=== PATIENT | female | born 1985 | race American Indian/Alaskan Native ===

== ENCOUNTER 2020-07-30 09:16 | Emergency (ER) | payer SELFPAY ==
[2020-07-30] MEDS ORDERED: IPRATROPIUM/ALBUTEROL SULFATE 3 ML AMPUL.NEB IH ONE ×2 (09:37→11:43)
[2020-07-30] MEDS ORDERED: methylPREDNISolone Sod Succinate 125 MG/2 ML INJ IV ONE (09:37)
--- NOTE | 2020-07-30 09:39 | Event Note ---
ED Screening Note Date of service: 07/30/20 Time: 09:37 ED Screening Note: 35-year-old female with a past medical history of asthma and bronchitis presents to the ER today with complaints of shortness of breath and cough. Onset of symptoms 2 weeks ago. She reports associated chest pain from the coughing. Reports generalized body aches. She had a negative Covid test about 2 days ago. She is also out of her inhaler. This initial assessment/diagnostic orders/clinical plan/treatment(s) is/are s ubject to change based on patients health status, clinical progression and re- assessment by fellow clinical providers in the ED. Further treatment and workup at subsequent clinical providers discretion. Patient/guardian urged not to elope from the ED as their condition may be serious if not clinically assessed and managed. Initial orders include: Dyspnea work up
[2020-07-30 10:11] LABS: Hemoglobin 11.1 gm/dl (10.1-14.3); Mean Corpuscular HGB Conc 33 % (30-34); Mean Corpuscular Volume 84 fl (79-97); Platelet Count 303 K/mm3 (140-440); Red Blood Count 4.04 M/mm3 (3.65-5.03); Red Cell Distribution Width 14.6 % (13.2-15.2)
[2020-07-30 10:40] LABS: Alanine Aminotransferase 17 units/L (7-56); Albumin 3.9 g/dL (3.9-5); Blood Urea Nitrogen 10 mg/dL (7-17); Hemolysis Index 0
--- NOTE | 2020-07-30 10:49 | XRay Report ---
CHEST 1 VIEW 07/30/2020 9:43 AM INDICATION / CLINICAL INFORMATION: Dyspnea. COMPARISON: None available. FINDINGS: SUPPORT DEVICES: None. HEART / MEDIASTINUM: No significant abnormality. LUNGS / PLEURA: Clear lungs. No significant pleural effusion. No pneumothorax. ADDITIONAL FINDINGS: No significant additional findings. IMPRESSION: 1. No acute abnormality of the chest. Signer Name: James Watt MD Signed: 07/30/2020 10:45 AM Workstation Name: [id number]
[2020-07-30 11:05] LABS: BUN/Creatinine Ratio 17
[2020-07-30] MEDS ORDERED: methylPREDNISolone Sod Succinate 125 MG/2 ML INJ ONE (11:39)
[2020-07-30] MEDS ORDERED: KETOROLAC 30 MG/1 ML INJ IV ONE (11:48)
[2020-07-30] MEDS ORDERED: ONDANSETRON 4 MG/2 ML INJ IV ONE (11:48)
[2020-07-30] MEDS ORDERED: ACETAMINOPHEN 325 MG TAB PO ONE (11:48)
--- NOTE | 2020-07-30 11:49 | Emergency Department Report ---
ED General Adult HPI - General Chief complaint: Dyspnea/Respdistress Stated complaint: CHEST PAIN/COUGH/NHI PUI?: Yes Time Seen by Provider: 07/30/20 11:38 Source: patient, RN notes reviewed Mode of arrival: Ambulatory Limitations: No Limitations - History of Present Illness Initial comments: The patient was evaluated in the emergency department for symptoms described in the history of present illness. He/she was evaluated in the context of the global COVID-19 pandemic, which necessitated consideration that the patient migh t be at risk for infection with the virus that causes COVID-19. Institutional protocols and algorithms that pertain to the evaluation of patients at risk for COVID-19 are in a state of rapid change based on information released by regulatory bodies including the CDC and federal and state organizations. These policies and algorithms were followed during the patient's care in the emergency department. Please note that these policies, procedures and recommendations changed on a rapid basis. During the entire history and physical examination, I had on complete personal protective equipment. The patient is a 35-year-old female. She is not known to myself previously. She states that she is not , and has not delivered or given in the past 6 weeks. She states she does not take control tablets, oral contraceptives, she denies DVT and pulmonary embolism risk factors, and there is no personal/family history of ischemic heart disease, DVT or pulmonary embolism. Patient is a former tobacco smoker, reports that she quit smoking 3 months ago, but still is closely associated with individuals who smoke tobacco, and marijuana. The patient presents to the ER today with a complaint of 2 weeks of chest tightness, shortness of breath, cough and wheezing. Chest tightness does not radiate to the back, arms or neck. There is no vomiting or diaphoresis. No fever, no loss of taste or smell. Patient reports a recent negative Covid test. No leg pain or leg swelling. No abdominal pain, vomiting, urinary symptoms. Symptoms are improved in the emergency room with conservative therapy. The pain does not radiate anywhere. Pain increases with palpation, coughing. -: Gradual, week(s) Location: chest Radiation: non-radiation Quality: aching Consistency: other Improves with: medication, rest Worsens with: movement - Related Data Previous Rx's Medication Instructions Recorded Last Taken Type Acetaminophen [Non-Aspirin Extra 500 mg PO Q6HR PRN #30 tablet 07/30/20 Unknown Rx Strength] Albuterol Sulfate [Proair 90 mcg IH Q4HR PRN #2 aer.pow.ba 07/30/20 Unknown Rx Respiclick] Ibuprofen [Motrin] 600 mg PO Q8H PRN #30 tablet 07/30/20 Unknown Rx predniSONE [Deltasone] 40 mg PO QDAY #8 tab 07/30/20 Unknown Rx Allergies Allergy/AdvReac Type Severity Reaction Status Date / Time No Known Allergies Allergy Unverified 07/30/20 09:30 ED Review of Systems ROS: Stated complaint: CHEST PAIN/COUGH/NHI Other details as noted in HPI Constitutional: other (Denies loss of taste and smell). denies: fever, malaise, weakness ENT: congestion Respiratory: cough, shortness of breath, SOB with exertion, wheezing Cardiovascular: other (Chest wall pain) Gastrointestinal: denies: abdominal pain, hematemesis, melena, hematochezia Genitourinary: denies: dysuria Musculoskeletal: myalgia Neurological: weakness Hematological/Lymphatic: denies: easy bleeding ED Past Medical Hx - Past Medical History Hx Asthma: Yes - Surgical History Additional Surgical History: C SECTION - Medications Home Medications: Home Medications Medication Instructions Recorded Confirmed Last Taken Type Acetaminophen [Non-Aspirin Extra 500 mg PO Q6HR PRN #30 tablet 07/30/20 Unknown Rx Strength] Albuterol Sulfate [Proair 90 mcg IH Q4HR PRN #2 aer.pow.ba 07/30/20 Unknown Rx Respiclick] Ibuprofen [Motrin] 600 mg PO Q8H PRN #30 tablet 07/30/20 Unknown Rx predniSONE [Deltasone] 40 mg PO QDAY #8 tab 07/30/20 Unknown Rx ED Physical Exam - General Limitations: No Limitations General appearance: alert, anxious, obese - Head Head exam: Present: atraumatic, normocephalic - Eye Eye exam: Present: normal appearance, EOMI. Absent: nystagmus - ENT ENT exam: Present: normal exam, normal orophraynx, mucous membranes moist, normal external ear exam - Neck Neck exam: Present: normal inspection, full ROM. Absent: tenderness, meningismus - Respiratory Respiratory exam: Present: wheezes (Faint wheezes appreciated), rhonchi, chest wall tenderness. Absent: respiratory distress, rales, stridor - Cardiovascular Cardiovascular Exam: Present: regular rate, normal rhythm, normal heart sounds. Absent: bradycardia, tachycardia, irregular rhythm, systolic murmur, diastolic murmur, rubs, gallop - GI/Abdominal GI/Abdominal exam: Present: soft. Absent: distended, tenderness, guarding, rebound, rigid, pulsatile mass - Extremities Exam Extremities exam: Present: normal inspection, full ROM, other (2+ pulses noted in the bilateral upper and lower extremities. There is no palpable cord. negative Homans sign. Muscular compartments are soft. The pelvis is stable.). Absent: pedal edema, calf tenderness - Back Exam Back exam: Present: normal inspection, full ROM. Absent: tenderness, CVA tenderness (R), CVA tenderness (L), paraspinal tenderness, vertebral tenderness - Neurological Exam Neurological exam: Present: alert, normal gait, other (No facial droop. Tongue midline. Extraocular movements intact bilaterally. Facial sensation intact to light touch in V1, V2, V3 distribution bilaterally. 5 and a 5 strength in 4 extremities. Sensation intact to light touch in 4 extremities.). Absent: motor sensory deficit - Psychiatric Psychiatric exam: Present: normal affect, normal mood - Skin Skin exam: Present: warm, dry, intact, normal color. Absent: rash ED Course Vital Signs 07/30/20 07/30/20 07/30/20 09:34 11:48 12:24 Temperature 98.0 F 97.7 F Pulse Rate 121 H 79 Pulse Rate [ 120 H Anterior Bilateral Throughout] Respiratory 24 15 Rate Respiratory 22 Rate [Anterior Bilateral Throughout] Blood Pressure 191/97 Blood Pressure 133/65 [Left] O2 Sat by Pulse 99 99 Oximetry ED Medical Decision Making - Lab Data Result diagrams: 07/30/20 09:43 07/30/20 09:43 Vital Signs 07/30/20 07/30/20 07/30/20 09:34 11:48 12:24 Temperature 98.0 F 97.7 F Pulse Rate 121 H 79 Pulse Rate [ 120 H Anterior Bilateral Throughout] Respiratory 24 15 Rate Respiratory 22 Rate [Anterior Bilateral Throughout] Blood Pressure 191/97 Blood Pressure 133/65 [Left] O2 Sat by Pulse 99 99 Oximetry Lab Results 07/30/20 07/30/20 Range/Units 09:43 09:43 WBC 12.4 H (4.5-11.0) K/mm3 RBC 4.04 (3.65-5.03) M/mm3 Hgb 11.1 (10.1-14.3) gm/dl Hct 34.0 (30.3-42.9) % MCV 84 (79-97) fl MCH 28 (28-32) pg MCHC 33 (30-34) % RDW 14.6 (13.2-15.2) % Plt Count 303 (140-440) K/mm3 Lymph # (Auto) Pairer Substandard Sodium 139 (137-145) mmol/L Potassium 4.0 (3.6-5.0) mmol/L Chloride 103.5 (98-107) mmol/L Carbon Dioxide 29 (22-30) mmol/L Anion Gap 11 mmol/L BUN 10 (7-17) mg/dL Creatinine 0.6 (0.6-1.2) mg/dL Estimated GFR > 60 ml/min BUN/Creatinine Ratio 17 % Glucose 109 H (65-100) mg/dL Calcium 9.0 (8.4-10.2) mg/dL Total Bilirubin 0.20 (0.1-1.2) mg/dL AST 15 (5-40) units/L ALT 17 (7-56) units/L Alkaline Phosphatase 79 (35-129) units/L Troponin T < 0.010 (0.00-0.029) ng/mL Total Protein 6.4 (6.3-8.2) g/dL Albumin 3.9 (3.9-5) g/dL Albumin/Globulin Ratio 1.6 % Lipase 28 (13-60) units/L - EKG Data -: EKG Interpreted by [facility] EKG shows normal: sinus rhythm Rate: normal - EKG Data When compared to previous EKG there are: previous EKG unavailable 07/30/20 14:18 EKG time of interpretation: 12: 13 P.m. No prior EKGs available for comparison. Sinus rhythm, 98 bpm. Normal axis, the QTC is 472 ms. There is poor R wave progression, nonspecific T wave abnormality,, motion artifact. Not a STEMI. - Radiology Data Radiology results: pending, report reviewed, image reviewed CHEST 1 VIEW 07/30/2020 9:43 AM INDICATION / CLINICAL INFORMATION: Dyspnea. COMPARISON: None available. FINDINGS: SUPPORT DEVICES: None. HEART / MEDIASTINUM: No significant abnormality. LUNGS / PLEURA: Clear lungs. No sig nificant pleural effusion. No pneumothorax. ADDITIONAL FINDINGS: No significant additional findings. IMPRESSION: 1. No acute abnormality of the chest. Signer Name: James Watt MD Signed: 07/30/2020 9:45 AM Workstation Name: [id number] - Medical Decision Making Differential diagnosis, including but not limited to: Costochondritis, bronchitis, pneumonia, COVID-19, viral syndrome, pneumonitis Assessment and plan: 35-year-old female, who is now afebrile with reassuring vital signs, with resolved tachycardia, resolved hypertension/elevated blood pressure, who denies DVT and pulmonary embolism risk factors, who is low risk by Wells criteria, low risk for major adverse cardiac event as per heart score, symptoms present for weeks, troponin negative x1, EKG fairly unremarkable, with probable costochondritis, superimposed on bronchitis/viral syndrome/question Covid Laboratory studies unremarkable. Tachycardia resolved. Elevated blood pressure resolved. X-ray of the chest unremarkable. Patient ambulated on room air without desaturation. Counseled patient on natural history of COVID-19 and bronchitis. Patient reports a recent negative COVID-19 test as an outpatient. Patient counseled to avoid exposure to tobacco, smoke products, marijuana products. Patient observed in this ER for hours without clinical decompensation, suitable to follow-up as an outpatient. Patient has equal pulses in the upper and lower extremities, no pulsatile abdominal mass, and an unremarkable x-ray of the chest, therefore, aortic disease is very unlikely. Patient at low risk for major adverse cardiac event as per heart score. Critical care attestation.: If time is entered above; I have spent that time in minutes in the direct care of this critically ill patient, excluding procedure time. ED Disposition Clinical Impression: Suspected 2019 novel coronavirus infection, Bronchitis, Costochondritis Disposition: DC-01 TO HOME OR SELFCARE Is pt being admited?: No Does the pt Need Aspirin: No Condition: Good Instructions: Chronic Bronchitis (ED), Costochondritis, [id number], Upper Respiratory Infection, Adult, [id number], COVID-19 Additional Instructions: As we discussed, patient likely has bronchitis, and superimposed costochondrit is/inflammation/irritation of the muscles and connective tissue of the chest wall. The patient may also have superimposed COVID-19. Recommend avoidance/exposure to all smoke, tobacco, marijuana products. The symptoms of COVID will typically persist 10 to 14 days. There is no cure at this time for COVID. Please make certain to self isolate and self quarantine, follow-up with an outpatient primary care doctor within the next 3 to 5 days, wash hands with soap and water frequently, thoroughly and often, patient may take the prescribed medications as needed and directed. Advance diet and drink plenty of fluids as tolerated. Avoid interactions with the very elderly, very young, and those with chronic medical conditions. Return to the emergency room right away with new pain, worsening pain, migration of pain, projectile vomiting, change in mental status, confusion, inability to tolerate liquid feeds, new, worsened or different symptoms not present on the initial emergency room evaluation. Referrals: CHILO DYSON MD [Staff Physician] - 3-5 Days [facility] [Provider Group] - 3-5 Days Forms: Work/School Release Form(ED)
[2020-07-30 12:25] VITALS: BP 133/65
[2020-07-30 14:49] LABS: Platelet Estimate Consistent w Auto; RBC Morphology Normal; Total Cells Counted 100
== END 2020-07-30 15:09 | disposition home or self-care (01) ==
LOC: ED 09:16
DX: J40 Bronchitis, not specified as acute or chronic (principal); M94.0 Chondrocostal junction syndrome [Tietze]; Z79.899 Other long term (current) drug therapy; Z20.822 Contact with and (suspected) exposure to COVID-19
CPT/HCPCS: 36415; 71045; 80053; 83690; 84484; 85007; 85025; 93005; 94640; 96374; 96375; 99284; J1885; J2405; J2930; 94644

== ENCOUNTER 2020-08-05 08:37 | Emergency (ER) | payer SELFPAY ==
--- NOTE | 2020-08-05 08:45 | Event Note ---
ED Screening Note ED Screening Note: co severe cough wbc 12 last week here 1 w ago- see note 2 neg covid PCR- one on Monday chills This initial assessment/diagnostic orders/clinical plan/treatment(s) is/are subject to change based on patients health status, clinical progression and re- assessment by fellow clinical providers in the ED. Further treatment and workup at subsequent clinical providers discretion. Patient/guardian urged not to elope from the ED as their condition may be serious if not clinically assessed and managed. Initial orders include: labs/xray
[2020-08-05] MEDS ORDERED: ALBUTEROL 2.5 MG/3 ML NEBU IH ONE (09:00)
[2020-08-05 09:38] LABS: Hematocrit 34.6 % (30.3-42.9); Hemoglobin 11.2 gm/dl (10.1-14.3); Mean Corpuscular HGB Conc 32 % (30-34); Mean Corpuscular Volume 83 fl (79-97); Platelet Count 322 K/mm3 (140-440); Red Blood Count 4.14 M/mm3 (3.65-5.03); Red Cell Distribution Width 14.7 % (13.2-15.2)
[2020-08-05] MEDS ORDERED: SODIUM CHLORIDE 0.9% 1000 ML 1,000 ML IV ONE (09:56)
--- NOTE | 2020-08-05 10:17 | Emergency Department Report ---
ED General Adult HPI - General Chief complaint: Upper Respiratory Infection Stated complaint: SOB Time Seen by Provider: 08/05/20 10:07 Source: patient Mode of arrival: Ambulatory Limitations: No Limitations - History of Present Illness Initial comments: This is a 35-year-old female who complains of left-sided chest pain intermittently since July 11. She states that she was seen and evaluated here on July 30 for recurrent symptoms. She was given an albuterol treatment which improved her dyspnea to a limited degree. She states that she has been short of breath with a cough productive of green sputum which is sometimes reddish. She describes her pain as worsening with respiration. She does not report any recent travel, leg pain or swelling. She states that she has no known past medical history. She does not have a primary care provider. Patient states she is already had negative Covid testing x2 during this time, the last one recently. She states the pain is actually in the lateral aspect of her left chest. It appears that she was placed on prednisone and given a bronchodilator on 30 July but no antibiotic. Patient denies a personal history of VTE. She denies a family history of VTE. -: Gradual, week(s) Location: chest Radiation: non-radiation Severity scale (0 -10): 7 Quality: sharp Consistency: intermittent Improves with: none Worsens with: other (Respiration) Associated Symptoms: denies other symptoms, shortness of breath Treatments Prior to Arrival: none - Related Data Previous Rx's Medication Instructions Recorded Last Taken Type Acetaminophen [Non-Aspirin Extra 500 mg PO Q6HR PRN #30 tablet 07/30/20 Unknown Rx Strength] Albuterol Sulfate [Proair 90 mcg IH Q4HR PRN #2 aer.pow.ba 07/30/20 Unknown Rx Respiclick] Ibuprofen [Motrin] 600 mg PO Q8H PRN #30 tablet 07/30/20 Unknown Rx predniSONE [Deltasone] 40 mg PO QDAY #8 tab 07/30/20 Unknown Rx levoFLOXacin [Levaquin TAB] 500 mg PO QDAY #7 tablet 08/05/20 Unknown Rx traMADoL [Ultram 50 MG tab] 50 mg PO Q6HR PRN #10 tablet 08/05/20 Unknown Rx Allergies Allergy/AdvReac Type Severity Reaction Status Date / Time No Known Allergies Allergy Verified 08/05/20 08:58 ED Review of Systems ROS: Stated complaint: SOB Other details as noted in HPI Constitutional: denies: chills, fever Eyes: denies: eye pain, eye discharge, vision change ENT: denies: ear pain, throat pain Respiratory: see HPI, cough, shortness of breath Cardiovascular: chest pain. denies: palpitations Endocrine: no symptoms reported Gastrointestinal: denies: abdominal pain, nausea, diarrhea Genitourinary: denies: urgency, dysuria, discharge Musculoskeletal: denies: back pain, joint swelling, arthralgia Skin: denies: rash, lesions Neurological: denies: headache, weakness, paresthesias Psychiatric: denies: anxiety, depression Hematological/Lymphatic: denies: easy bleeding, easy bruising ED Past Medical Hx - Past Medical History Previous Medical History?: Yes Hx Asthma: Yes - Surgical History Additional Surgical History: C SECTION - Social History Smoking Status: Never Smoker Substance Use Type: None - Medications Home Medications: Home Medications Medication Instructions Recorded Confirmed Last Taken Type Acetaminophen [Non-Aspirin Extra 500 mg PO Q6HR PRN #30 tablet 07/30/20 Unknown Rx Strength] Albuterol Sulfate [Proair 90 mcg IH Q4HR PRN #2 aer.pow.ba 07/30/20 Unknown Rx Respiclick] Ibuprofen [Motrin] 600 mg PO Q8H PRN #30 tablet 07/30/20 Unknown Rx predniSONE [Deltasone] 40 mg PO QDAY #8 tab 07/30/20 Unknown Rx levoFLOXacin [Levaquin TAB] 500 mg PO QDAY #7 tablet 08/05/20 Unknown Rx traMADoL [Ultram 50 MG tab] 50 mg PO Q6HR PRN #10 tablet 08/05/20 Unknown Rx ED Physical Exam - General Limitations: No Limitations General appearance: alert, anxious, other (Pulse oximetry is 100%, the patient is mildly tachycardic and anxious) - Head Head exam: Present: atraumatic, normocephalic - Eye Eye exam: Present: normal appearance. Absent: scleral icterus - ENT ENT exam: Present: mucous membranes moist - Neck Neck exam: Present: normal inspection - Respiratory Respiratory exam: Present: normal lung sounds bilaterally. Absent: respiratory distress - Cardiovascular Cardiovascular Exam: Present: normal rhythm, tachycardia. Absent: systolic murmur, diastolic murmur, rubs, gallop - GI/Abdominal GI/Abdominal exam: Present: soft, normal bowel sounds. Absent: distended, tenderness, guarding, rebound - Extremities Exam Extremities exam: Present: normal inspection - Back Exam Back exam: Present: normal inspection, CVA tenderness (L). Absent: CVA tenderness (R), paraspinal tenderness, vertebral tenderness - Neurological Exam Neurological exam: Present: alert, oriented X3, CN II-XII intact. Absent: motor sensory deficit - Psychiatric Psychiatric exam: Present: normal mood, anxious - Skin Skin exam: Present: warm, dry, intact, normal color. Absent: rash ED Course Vital Signs 08/05/20 08/05/20 08/05/20 09:05 09:30 09:34 Temperature 98.8 F Pulse Rate 100 H 94 H Pulse Rate [ Anterior Bilateral Throughout] Respiratory 28 H 32 H Rate Respiratory Rate [Anterior Bilateral Throughout] Blood Pressure 185/100 184/96 [Right] O2 Sat by Pulse 96 99 99 Oximetry 08/05/20 08/05/20 08/05/20 09:55 10:30 11:39 Temperature Pulse Rate 115 H 111 H Pulse Rate [ 90 Anterior Bilateral Throughout] Respiratory 12 Rate Respiratory 24 Rate [Anterior Bilateral Throughout] Blood Pressure 147/73 136/66 [Right] O2 Sat by Pulse 100 99 Oximetry 08/05/20 12:48 Temperature Pulse Rate 102 H Pulse Rate [ Anterior Bilateral Throughout] Respiratory Rate Respiratory Rate [Anterior Bilateral Throughout] Blood Pressure 130/77 [Right] O2 Sat by Pulse 98 Oximetry - Reevaluation(s) Reevaluation #1: Even though the D-dimer was negative, with the patient's recurrent symptoms I thought it judicious to obtain a CT angiogram. It was obtained and completely negative. Patient does have an elevated white blood cell count. I would presume that this is an acute bronchitis and place her on an oral antibiotic. Assuming her EKG shows no evidence of anything acute, she is appropriate for outpatient follow- up. 08/05/20 13:02 08/05/20 13:06 ED Medical Decision Making - Lab Data Result diagrams: 08/05/20 09:26 08/05/20 09:26 Laboratory Results - last 24 hr 08/05/20 08/05/20 08/05/20 09:26 09:26 09:26 WBC 16.5 H RBC 4.14 Hgb 11.2 Hct 34.6 MCV 83 MCH 27 L MCHC 32 RDW 14.7 Plt Count 322 Lymph # (Auto) Catering Associate D-Dimer Lactic Acid 1.10 HCG, Qual Negative 08/05/20 09:26 WBC RBC Hgb Hct MCV MCH MCHC RDW Plt Count Lymph # (Auto) D-Dimer 213.99 Lactic Acid HCG, Qual Laboratory Results - last 24 hr 08/05/20 08/05/20 08/05/20 09:26 09:26 09:26 WBC 16.5 H RBC 4.14 Hgb 11.2 Hct 34.6 MCV 83 MCH 27 L MCHC 32 RDW 14.7 Plt Count 322 Lymph # (Auto) Catering Associate D-Dimer Sodium 139 Potassium 4.2 Chloride 102.2 Carbon Dioxide 28 Anion Gap 13 BUN 15 Creatinine 0.7 Estimated GFR > 60 BUN/Creatinine Ratio 21 Glucose 92 Lactic Acid Calcium 8.9 C-Reactive Protein Procalcitonin HCG, Qual Negative 08/05/20 08/05/20 08/05/20 09:26 09:26 09:26 WBC RBC Hgb Hct MCV MCH MCHC RDW Plt Count Lymph # (Auto) D-Dimer 213.99 Sodium Potassium Chloride Carbon Dioxide Anion Gap BUN Creatinine Estimated GFR BUN/Creatinine Ratio Glucose Lactic Acid 1.10 Calcium C-Reactive Protein 1.00 Procalcitonin HCG, Qual 08/05/20 09:26 WBC RBC Hgb Hct MCV MCH MCHC RDW Plt Count Lymph # (Auto) D-Dimer Sodium Potassium Chloride Carbon Dioxide Anion Gap BUN Creatinine Estimated GFR BUN/Creatinine Ratio Glucose Lactic Acid Calcium C-Reactive Protein Procalcitonin < 0.05 HCG, Qual Laboratory Results - last 24 hr 08/05/20 08/05/20 08/05/20 09:26 09:26 09:26 WBC 16.5 H RBC 4.14 Hgb 11.2 Hct 34.6 MCV 83 MCH 27 L MCHC 32 RDW 14.7 Plt Count 322 Lymph # (Auto) Catering Associate D-Dimer Sodium 139 Potassium 4.2 Chloride 102.2 Carbon Dioxide 28 Anion Gap 13 BUN 15 Creatinine 0.7 Estimated GFR > 60 BUN/Creatinine Ratio 21 Glucose 92 Lactic Acid Calcium 8.9 C-Reactive Protein Procalcitonin HCG, Qual Negative Urine Color Urine Turbidity Urine pH Ur Specific [place] Urine Protein Urine Glucose (UA) Urine Ketones Urine Blood Urine Nitrite Urine Bilirubin Urine Urobilinogen Ur Leukocyte Esterase Urine WBC (Auto) Urine RBC (Auto) U Epithel Cells (Auto) Urine Opiates Screen Urine Methadone Screen Ur Barbiturates Screen Ur Phencyclidine Scrn Ur Amphetamines Screen U Benzodiazepines Scrn Urine Cocaine Screen U Marijuana (THC) Screen Drugs of Abuse Note 08/05/20 08/05/20 08/05/20 09:26 09:26 09:26 WBC RBC Hgb Hct MCV MCH MCHC RDW Plt Count Lymph # (Auto) D-Dimer 213.99 Sodium Potassium Chloride Carbon Dioxide Anion Gap BUN Creatinine Estimated GFR BUN/Creatinine Ratio Glucose Lactic Acid 1.10 Calcium C-Reactive Protein 1.00 Procalcitonin HCG, Qual Urine Color Urine Turbidity Urine pH Ur Specific [place] Urine Protein Urine Glucose (UA) Urine Ketones Urine Blood Urine Nitrite Urine Bilirubin Urine Urobilinogen Ur Leukocyte Esterase Urine WBC (Auto) Urine RBC (Auto) U Epithel Cells (Auto) Urine Opiates Screen Urine Methadone Screen Ur Barbiturates Screen Ur Phencyclidine Scrn Ur Amphetamines Screen U Benzodiazepines Scrn Urine Cocaine Screen U Marijuana (THC) Screen Drugs of Abuse Note 08/05/20 08/05/20 08/05/20 09:26 Unknown Unknown WBC RBC Hgb Hct MCV MCH MCHC RDW Plt Count Lymph # (Auto) D-Dimer Sodium Potassium Chloride Carbon Dioxide Anion Gap BUN Creatinine Estimated GFR BUN/Creatinine Ratio Glucose Lactic Acid Calcium C-Reactive Protein Procalcitonin < 0.05 HCG, Qual Urine Color Straw Urine Turbidity Clear Urine pH 7.0 Ur Specific [place] 1.015 Urine Protein <15 mg/dl Urine Glucose (UA) Neg Urine Ketones Neg Urine Blood Neg Urine Nitrite Neg Urine Bilirubin Neg Urine Urobilinogen < 2.0 Ur Leukocyte Esterase Neg Urine WBC (Auto) 1.0 Urine RBC (Auto) 1.0 U Epithel Cells (Auto) < 1.0 Urine Opiates Screen Negative Urine Methadone Screen Negative Ur Barbiturates Screen Negative Ur Phencyclidine Scrn Negative Ur Amphetamines Screen Negative U Benzodiazepines Scrn Negative Urine Cocaine Screen Negative U Marijuana (THC) Screen Negative Drugs of Abuse Note Disclamer - EKG Data -: EKG Interpreted by [place] EKG shows normal: sinus rhythm, axis, intervals, QRS complexes, ST-T waves Rate: normal - EKG Data Interpretation: other (Essentially normal EKG) - Radiology Data Radiology results: report reviewed (Normal study) Critical care attestation.: If time is entered above; I have spent that time in minutes in the direct care of this critically ill patient, excluding procedure time. ED Disposition Clinical Impression: Atypical chest pain Acute bronchitis Qualifiers: Bronchitis organism: unspecified organism Qualified Code(s): J20.9 - Acute bronchitis, unspecified Disposition: - TO HOME OR SELFCARE Is pt being admited?: No Does the pt Need Aspirin: No Condition: Stable Instructions: Nonspecific Chest Pain, Adult, Acute Bronchitis (ED), Acute Bronchitis, Adult, [id number] Additional Instructions: Rx as directed. Follow-up with the primary care doctor or clinic. Return any acute change or problem. Prescriptions: levoFLOXacin [Levaquin TAB] 500 mg PO QDAY #7 tablet traMADoL [Ultram 50 MG tab] 50 mg PO Q6HR PRN #10 tablet PRN Reason: Pain Referrals: PRIMARY CARE, [Primary Care Provider] - 3-5 Days [facility] [Provider Group] - 3-5 Days Time of Disposition: 13:39
[2020-08-05] MEDS ORDERED: methylPREDNISolone Sod Succinate 125 MG/2 ML INJ IV ONE (10:29)
--- NOTE | 2020-08-05 10:31 | XRay Report ---
CHEST PA AND LATERAL VIEWS INDICATION: cough. COMPARISON: 07/30/2020 FINDINGS: Support devices: None. Heart: Within normal limits. Lungs/Pleura: No acute pulmonary or pleural findings. IMPRESSION: 1. No acute findings. Signer Name: Stew Cooper MD Signed: 08/05/2020 10:26 AM Workstation Name: [id number]
[2020-08-05 10:37] LABS: Blood Urea Nitrogen 15 mg/dL (7-17); Calcium 8.9 mg/dL (8.4-10.2); Hemolysis Index 4
[2020-08-05 10:38] LABS: BUN/Creatinine Ratio 21
[2020-08-05 11:28] LABS: Bilirubin,Urine NEG (Negative); Blood,Urine NEG (Negative); Color,Urine Straw (Yellow); Protein,Urine <15 mg/dL mg/dL (Negative); Urobilinogen,Urine < 2.0 mg/dL (<2.0)
[2020-08-05 11:30] LABS: Amphetamine Screen,Urine Negative; Benzodiazepines Screen,Urine Negative; Cannabinoid Screen,Urine Negative; Cocaine Screen,Urine Negative; Methadone Screen,Urine Negative; Opiate Screen,Urine Negative
--- NOTE | 2020-08-05 11:59 | Cat Scan Report ---
. CTA CHEST WITH CONTRAST INDICATION : Left-sided chest pain, shortness of breath. TECHNIQUE: Axial imaging performed through the chest, with contrast bolus timing set to maximize opa cification of the pulmonary arteries. Sagittal and coronal reformatted images. 3-plane MIP reformatte d images were obtained. All CT scans at this location are performed using CT dose reduction for ALAR A by means of automated exposure control. 100 mL of intravenous contrast administered. COMPARISON: None FINDINGS: Bolus: Contrast bolus timing is adequate. PTE: No filling defect is present to suggest PTE. Mediastinum: Heart and great vessels appear normal. No pathologic mediastinal adenopathy. Lungs: Lungs are clear. Bones: Degenerative changes in the spine with nothing acute. Upper abdomen: Limited imaging of the upper abdomen shows nothing acute. IMPRESSION: Negative for PTE. Clear lungs. Signer Name: Volodymyr Farrell Jr, MD Signed: 08/05/2020 11:54 AM Workstation Name: [id number]
[2020-08-05 14:10] LABS: RBC Morphology Normal; Total Cells Counted 100
[2020-08-05 14:11] LABS: Platelet Estimate Consistent w Auto
[2020-08-05 14:12] VITALS: BP 139/80
== END 2020-08-05 14:12 | disposition home or self-care (01) ==
LOC: ED 08:37
DX: J20.9 Acute bronchitis, unspecified (principal); R07.89 Other chest pain; Z79.899 Other long term (current) drug therapy
CPT/HCPCS: 36415; 71046; 71275; 80048; 80307; 81001; 82140; 84145; 84703; 85007; 85025; 85379; 86140; 93005; 94640; 96361; 96374; 99284; J2930; J7030; Q9967; 94644

== ENCOUNTER 2021-01-07 11:13 | Emergency (ER) | payer SELFPAY ==
[2021-01-07 11:20] VITALS: BP 127/71
[2021-01-07 12:55] LABS: Bilirubin,Urine NEG (Negative); Blood,Urine LG (Negative); Color,Urine Yellow (Yellow); Mucus,Urine FEW /HPF; Protein,Urine <15 mg/dL mg/dL (Negative); Urobilinogen,Urine < 2.0 mg/dL (<2.0)
[2021-01-07 12:56] LABS: HCG Qualitative,Urine Negative (Negative)
--- NOTE | 2021-01-07 13:32 | Emergency Department Report ---
ED General Adult HPI - General Chief complaint: Abdominal Pain Stated complaint: LOWER ABD/BACK PAIN Time Seen by Provider: 01/07/21 13:25 Source: patient Mode of arrival: Ambulatory Limitations: No Limitations - History of Present Illness Initial comments: Patient is a 35-year-old female presents emergency room with complaints of right lower back pain that began 2 weeks ago. She states that she also has some suprapubic abdominal discomfort. States that she has been having urinary frequency and urgency. She states that she has been having some intermittent nausea and vomiting and reports that she is had approximately 5 episodes of vomiting during this time. She is able to tolerate liquids. She denies any fever, chills, diarrhea, dysuria, abnormal vaginal discharge. She denies any concerns for STDs. No past medical history. No allergies to medications. Last menstrual cycle 01/04/21. - Related Data Previous Rx's Medication Instructions Recorded Last Taken Type Acetaminophen [Non-Aspirin Extra 500 mg PO Q6HR PRN #30 tablet 07/30/20 Unknown Rx Strength] Albuterol Sulfate [Proair 90 mcg IH Q4HR PRN #2 aer.pow.ba 07/30/20 Unknown Rx Respiclick] Ibuprofen [Motrin] 600 mg PO Q8H PRN #30 tablet 07/30/20 Unknown Rx predniSONE [Deltasone] 40 mg PO QDAY #8 tab 07/30/20 Unknown Rx levoFLOXacin [Levaquin TAB] 500 mg PO QDAY #7 tablet 08/05/20 Unknown Rx traMADoL [Ultram 50 MG tab] 50 mg PO Q6HR PRN #10 tablet 08/05/20 Unknown Rx Acetaminophen/Codeine [Tylenol 1 tab PO Q6H PRN #10 tab 01/07/21 Unknown Rx /Codeine # 3 tab] Ondansetron [Zofran Odt] 4 mg PO Q8HR PRN #10 tab.rapdis 01/07/21 Unknown Rx cephALEXin [Keflex] 500 mg PO BID 10 Days #20 capsule 01/07/21 Unknown Rx Allergies Allergy/AdvReac Type Severity Reaction Status Date / Time No Known Allergies Allergy Verified 01/07/21 11:15 ED Review of Systems ROS: Stated complaint: LOWER ABD/BACK PAIN Other details as noted in HPI Comment: All other systems reviewed and negative ED Past Medical Hx - Past Medical History Hx Asthma: Yes Additional medical history: BRONCHITIS - Surgical History Additional Surgical History: C SECTION - Social History Smoking Status: Never Smoker Substance Use Type: Alcohol - Medications Home Medications: Home Medications Medication Instructions Recorded Confirmed Last Taken Type Acetaminophen [Non-Aspirin Extra 500 mg PO Q6HR PRN #30 tablet 07/30/20 Unknown Rx Strength] Albuterol Sulfate [Proair 90 mcg IH Q4HR PRN #2 aer.pow.ba 07/30/20 Unknown Rx Respiclick] Ibuprofen [Motrin] 600 mg PO Q8H PRN #30 tablet 07/30/20 Unknown Rx predniSONE [Deltasone] 40 mg PO QDAY #8 tab 07/30/20 Unknown Rx levoFLOXacin [Levaquin TAB] 500 mg PO QDAY #7 tablet 08/05/20 Unknown Rx traMADoL [Ultram 50 MG tab] 50 mg PO Q6HR PRN #10 tablet 08/05/20 Unknown Rx Acetaminophen/Codeine [Tylenol 1 tab PO Q6H PRN #10 tab 01/07/21 Unknown Rx /Codeine # 3 tab] Ondansetron [Zofran Odt] 4 mg PO Q8HR PRN #10 tab.rapdis 01/07/21 Unknown Rx cephALEXin [Keflex] 500 mg PO BID 10 Days #20 capsule 01/07/21 Unknown Rx ED Physical Exam - General Limitations: No Limitations General appearance: alert, in no apparent distress - Head Head exam: Present: atraumatic, normocephalic - Eye Eye exam: Present: normal appearance - ENT ENT exam: Present: mucous membranes moist - Respiratory Respiratory exam: Present: normal lung sounds bilaterally. Absent: respiratory distress, wheezes, rales, rhonchi, stridor, chest wall tenderness, accessory muscle use, decreased breath sounds, prolonged expiratory - Cardiovascular Cardiovascular Exam: Present: regular rate, normal rhythm, normal heart sounds. Absent: systolic murmur, diastolic murmur, rubs, gallop - GI/Abdominal GI/Abdominal exam: Present: soft, normal bowel sounds. Absent: distended, tenderness, rebound, rigid - Back Exam Back exam: Present: CVA tenderness (R) (mild). Absent: CVA tenderness (L) - Neurological Exam Neurological exam: Present: alert, oriented X3 - Psychiatric Psychiatric exam: Present: normal affect, normal mood - Skin Skin exam: Present: warm, dry, intact ED Course Vital Signs 01/07/21 11:18 Temperature 98.2 F Pulse Rate 73 Respiratory 20 Rate Blood Pressure 127/71 O2 Sat by Pulse 100 Oximetry ED Medical Decision Making - Lab Data Lab Results 01/07/21 Range/Units 12:32 Urine Color Yellow (Yellow) Urine Turbidity Slightly-cloudy (Clear) Urine pH 6.0 (5.0-7.0) Ur Specific [place] 1.023 (1.003-1.030) Urine Protein <15 mg/dl (Negative) mg/dL Urine Glucose (UA) Neg (Negative) mg/dL Urine Ketones Neg (Negative) mg/dL Urine Blood Lg (Negative) Urine Nitrite Neg (Negative) Urine Bilirubin Neg (Negative) Urine Urobilinogen < 2.0 (<2.0) mg/dL Ur Leukocyte Esterase Tr (Negative) Urine WBC (Auto) 10.0 H (0.0-6.0) /HPF Urine RBC (Auto) 4.0 (0.0-6.0) /HPF U Epithel Cells (Auto) 10.0 (0-13.0) /HPF Urine Mucus Few /HPF Urine HCG, Qual Negative (Negative) - Medical Decision Making Patient is a 35-year-old female presents emergency room with complaints of right lower back pain that began 2 weeks ago. She states that she also has some suprapubic abdominal discomfort. States that she has been having urinary frequency and urgency. She states that she has been having some intermittent nausea and vomiting and reports that she is had approximately 5 episodes of vomiting during this time. She is able to tolerate liquids. She denies any fever, chills, diarrhea, dysuria, abnormal vaginal discharge. She denies any concerns for STDs. No past medical history. No allergies to medications. Last menstrual cycle 01/04/21. Vitals are normal. On exam patient has mild right CVA tenderness, no abdominal tenderness, no guarding, no rebound, no rigidity, normal bowel sounds, no peritoneal signs. UA shows evidence of UTI. She is afebrile, no tachycardia, she is able to tolerate p.o. intake. Discussed the importance of outpatient primary care reexamination and discussed strict return precautions. Patient given prescription for medications. Advised patient Please take medication as prescribed. Increase your fluid intake. Do not drive or operate machinery while taking severe pain medication. Follow-up with your primary care doctor for reexamination and to have your urine retested for clearance of bacteria. Return to emergency room immediately for any new or worsening symptoms including but not limited to worsening pain, fever, continued vomiting, unable to tolerate by mouth intake, etc. Critical care attestation.: If time is entered above; I have spent that time in minutes in the direct care of this critically ill patient, excluding procedure time. ED Disposition Clinical Impression: Right flank pain, Suprapubic pain UTI (urinary tract infection) Qualifiers: Urinary tract infection type: acute cystitis Hematuria presence: without hematuria Qualified Code(s): N30.00 - Acute cystitis without hematuria Disposition: HOME / SELF CARE / HOMELESS Is pt being admited?: No Does the pt Need Aspirin: No Condition: Stable Instructions: Urinary Tract Infection, Adult, [id number], Abdominal Pain (ED) Additional Instructions: Please take medication as prescribed. Increase your fluid intake. Do not drive or operate machinery while taking severe pain medication. Follow-up with your primary care doctor for reexamination and to have your urine retested for clearance of bacteria. Return to emergency room immediately for any new or worsening symptoms including but not limited to worsening pain, fever, continued vomiting, unable to tolerate by mouth intake, etc. Prescriptions: cephALEXin [Keflex] 500 mg PO BID 10 Days #20 capsule Acetaminophen/Codeine [Tylenol /Codeine # 3 tab] 1 tab PO Q6H PRN #10 tab PRN Reason: severe pain Ondansetron [Zofran Odt] 4 mg PO Q8HR PRN #10 tab.rapdis PRN Reason: nausea/vomiting Referrals: CHILO DYSON MD [Staff Physician] - 2-3 Days [facility] [Provider Group] - 2-3 Days Time of Disposition: 13:31 Print Language: DOMINICAN
== END 2021-01-07 14:03 | disposition home or self-care (01) ==
LOC: ED 11:13
DX: N39.0 Urinary tract infection, site not specified (principal); R10.2 Pelvic and perineal pain; R10.9 Unspecified abdominal pain; J45.909 Unspecified asthma, uncomplicated; Z79.899 Other long term (current) drug therapy; Z98.890 Other specified postprocedural states
CPT/HCPCS: 81001; 81025; 87076; 87086; 87186